=== PATIENT | female | born 1950 | race Asian ===

== ENCOUNTER 2018-03-01 08:19 | Inpatient (IN) | payer SELFPAY ==
[2018-03-01] MEDS ORDERED: DOCUSATE SODIUM 100 MG CAP PO (09:00)
[2018-03-01] MEDS ORDERED: PANTOPRAZOLE 40MG TAB (PROTONIX) PO (09:00)
[2018-03-01] MEDS: MOM 30ML SUSPENSION UDC PO (09:00)
[2018-03-01] MEDS: SENOKOT S TAB PO ×2 (09:00→20:36)
[2018-03-01] MEDS: PANTOPRAZOLE 40MG INJ (PROTONIX) (C9113) IV (09:00)
[2018-03-01 09:17] LABS: BASO % 0.3 % (0.0-1.0); EOS % 0.4 % (0.0-3.0); HEMATOCRIT 38.3 % (36.0-47.0); HEMOGLOBIN 12.9 g/dl (12.0-15.5); IMMATURE GRANULOCYTE % 0.7 % (0-3.0); LYMPH # 1.2 10^3/uL (1.5-4.5); MEAN CORPUSCULAR HEMOGLOBIN 30.6 pg (27.0-33.0); MEAN CORPUSCULAR HGB CONC 33.7 g/dl (32.0-36.5); MONO # 0.6 10^3/uL (0.0-0.8); MONO % 5.8 % (0.0-5.0); NEUTROPHILS % 80.8 % (36.0-66.0); PLATELET COUNT, AUTOMATED 205 10^3/uL (150-450); RED BLOOD COUNT 4.21 10^6/uL (4.00-5.40); RED CELL DISTRIBUTION WIDTH 12.5 % (11.5-14.5); WHITE BLOOD COUNT 9.9 10^3/uL (4.0-10.0)
[2018-03-01 09:51] LABS: ALBUMIN 3.5 GM/DL (3.2-5.2); ALBUMIN/GLOBULIN RATIO 0.88 (1.00-1.93); ALKALINE PHOSPHATASE 129 U/L (45-117); ALT/SGPT 193 U/L (12-78); ANION GAP 16 MEQ/L (8-16); AST/SGOT 75 U/L (7-37); BILIRUBIN,DIRECT 0.5 MG/DL (0.0-0.2); BILIRUBIN,TOTAL 1.3 MG/DL (0.2-1.0); BLOOD UREA NITROGEN 21 MG/DL (7-18); CALCIUM LEVEL 9.1 MG/DL (8.8-10.2); CARBON DIOXIDE LEVEL 16 MEQ/L (21-32); CHLORIDE LEVEL 99 MEQ/L (98-107); CPK CREATINE PHOSPHOKINASE 68 U/L (26-192); CREATININE FOR GFR 0.99 MG/DL (0.55-1.30); FREE T4 1.53 NG/DL (0.76-1.46); GLOMERULAR FILTRATION RATE 59.6 (>45); GLUCOSE, FASTING 548 MG/DL (70-100); LIPASE 107 U/L (73-393); MB/CK RELATIVE INDEX 1.91 (< OR =4); NT-PRO BNP 339 PG/ML (<125); POTASSIUM SERUM 4.6 MEQ/L (3.5-5.1); SODIUM LEVEL 131 MEQ/L (136-145); TOTAL PROTEIN 7.5 GM/DL (6.4-8.2); TROPONIN I < 0.02 NG/ML (< 0.10)
[2018-03-01] MEDS ORDERED: ISOVUE-370 76% 100ML VIAL (Q9967) As Ordered (09:58)
[2018-03-01] MEDS: HumuLIN R (REGULAR) INSULIN (NovoLIN R) **100U/ML** PER UNIT IV (10:05)
[2018-03-01] MEDS: MORPHINE 2 MG/ML 1ML SYRINGE (J2270) IV ×2 (10:15→10:54)
[2018-03-01] MEDS: ONDANSETRON 4MG/2ML VIAL (J2405) IV ×2 (10:15→11:30)
[2018-03-01 10:32] LABS: INR 1.28; PARTIAL THROMBOPLASTIN TIME 27.6 SECONDS (25.4-37.6); PROTHROMBIN TIME 16.2 SECONDS (12.1-14.4)
[2018-03-01] MEDS ORDERED: FLUMAZENIL 0.5 MG/5 ML VIAL As Ordered ×2 (11:47→15:40)
[2018-03-01] MEDS ORDERED: LIDOCAINE 1% MDV 20ML VIAL As Ordered ×2 (11:48→12:18)
[2018-03-01] MEDS ORDERED: MIDAZOLAM INJ 2 MG/2 ML VIAL (J2250) As Ordered ×5 (11:48→13:07)
[2018-03-01] MEDS ORDERED: KCL 20MEQ IN D5/NS 1000ML 1,000 ML IV (11:49)
[2018-03-01] MEDS ORDERED: ACETAMINOPHEN TAB 650MG DOSE (2X325MG) PO (12:00)
[2018-03-01] MEDS ORDERED: PERCOCET 5MG/325MG TAB PO ×3 (12:00→15:00)
[2018-03-01] MEDS ORDERED: BISACODYL 10 MG SUPP PR (12:00)
[2018-03-01] MEDS ORDERED: ONDANSETRON 4MG/2ML VIAL (J2405) IV ×3 (12:00→15:00)
[2018-03-01] MEDS: HumaLOG INSULIN (NovoLOG) PER UNIT SC ×4 (12:00→20:36)
[2018-03-01] MEDS ORDERED: NORCO, ANEXSIA 5/325MG TABLET (HYDROcodone/ACETAMINOPHEN) PO (12:00)
[2018-03-01] MEDS ORDERED: LEVALBUTEROL 1.25 MG/0.5 ML CONCENTRATE NEB NEB ×2 (12:00→14:00)
[2018-03-01] MEDS: NS 1,000 ML IV ×2 (12:20→17:24)
[2018-03-01 12:27] LABS: ABG HCO3 15.8 MEQ/L (22.0-26.0); ABG PARTIAL PRESSURE CO2 28.3 mmHg (35.0-45.0); ABG PARTIAL PRESSURE O2 89.4 mmHg (75.0-100.0); ABG SITE RT RADIAL; ABG TOTAL CO2 16.6 MEQ/L (23.0-31.0); ABG pH (ARTERIAL) 7.364 UNITS (7.350-7.450)
[2018-03-01] MEDS ORDERED: NOREPINEPHRINE 4 MG/4 ML AMP As Ordered (12:28)
[2018-03-01] MEDS ORDERED: MORPHINE 4 MG/ML 1ML VIAL/SYRINGE (J2270) IV (12:30)
[2018-03-01] MEDS ORDERED: NOREPINEPHRINE BITARTRATE 8 MG in D5W 492 ML IV (12:30)
[2018-03-01] MEDS: MIDAZOLAM INJ 2 MG/2 ML VIAL (J2250) IV (13:00)
[2018-03-01] MEDS ORDERED: PROPOFOL 200 MG/20 ML VIAL As Ordered (13:01)
[2018-03-01] MEDS ORDERED: KETAMINE HCL 200 MG/20 ML VIAL As Ordered (13:01)
[2018-03-01] MEDS ORDERED: SUCCINYLCHOLINE 100 MG/5 ML SYRINGE (J0330) As Ordered (13:03)
[2018-03-01] MEDS ORDERED: SUCCINYLCHOLINE INJ 200 MG/10 ML VIAL (J0330) As Ordered (13:04)
[2018-03-01] MEDS ORDERED: ROCURONIUM BROMIDE 50 MG/5 ML VIAL As Ordered ×2 (13:07→13:42)
[2018-03-01] MEDS ORDERED: fentaNYL 100 MCG/2 ML INJECTION (J3010) As Ordered ×2 (13:11→15:23)
[2018-03-01] MEDS ORDERED: PHENYLephrine HCL 500 MCG/5 ML (100MCG/ML) SYRINGE (J2370) As Ordered (13:21)
[2018-03-01] MEDS ORDERED: CALCIUM CHLORIDE 10% 1 GM/10 ML SYR As Ordered (13:21)
[2018-03-01] MEDS ORDERED: ceFAZolin 2 GM/D5W 50 ML IV BAG (J0690 PER 500MG) As Ordered (13:21)
[2018-03-01 13:41] LABS: BEDSIDE GLUCOSE 405 MG/DL (80-115)
[2018-03-01] MEDS ORDERED: DEXTROSE 50% 50 ML SYRINGE IV (13:45)
[2018-03-01] MEDS ORDERED: HEPARIN SOD (PORCINE) 5000 UNITS/ML VIAL IV (13:45)
[2018-03-01] MEDS ORDERED: LR 1,000 ML IV (13:45)
[2018-03-01] MEDS ORDERED: GLUCOSE 4 GM CHEW TABLET PO (13:45)
[2018-03-01] MEDS ORDERED: GLUCAGON FOR INJ 1 MG VIAL (J1610) SC (13:45)
[2018-03-01] MEDS ORDERED: HumuLIN R (REGULAR) INSULIN (NovoLIN R) **100U/ML** PER UNIT As Ordered (13:58)
[2018-03-01] MEDS ORDERED: MIDAZOLAM HCL 100 MG in D5W 80 ML IV (14:00)
[2018-03-01] MEDS: BUPIVACAINE LIPOSOME/PF 1.3% 20 ML VIAL (13.3MG/ML)(EXPAREL) As Ordered (14:11)
[2018-03-01] MEDS: BUPIVACAINE HCL 0.5% 30 ML VIAL As Ordered (14:11)
[2018-03-01] MEDS ORDERED: SUGAMMADEX SODIUM 500 MG/5 ML VIAL (BRIDION) As Ordered (14:12)
[2018-03-01] MEDS ORDERED: PROPOFOL 1,000 MG/100 ML VIAL As Ordered (14:41)
[2018-03-01 14:49] LABS: ABG BASE EXCESS -5.8 (-2.0-2.0); ABG DEVICE MECHAN. VENT; ABG HCO3 20.5 MEQ/L (22.0-26.0); ABG O2 SATURATION 94.1 % (95.0-99.0); ABG PARTIAL PRESSURE CO2 43.3 mmHg (35.0-45.0); ABG PARTIAL PRESSURE O2 83.9 mmHg (75.0-100.0); ABG STANDARD HCO3 19.6 MEQ/L (22.0-26.0); ABG TOTAL CO2 21.8 MEQ/L (23.0-31.0); ABG pH (ARTERIAL) 7.293 UNITS (7.350-7.450)
[2018-03-01] MEDS: PROPOFOL 1,000 MG in APPROPRIATE DILUENT 1 EA IV (14:50)
[2018-03-01] MEDS: LR 1,000 ML IV (15:00)
[2018-03-01] MEDS ORDERED: HYDROMORPHONE HCL 0.5 MG/ 0.5 ML SYRINGE (J1170 PER 1) IV (15:00)
[2018-03-01] MEDS ORDERED: PROPOFOL 1,000 MG/100 ML VIAL IV (15:00)
[2018-03-01] MEDS: SODIUM BICARBONATE 8.4% INJ 50 ML SYRINGE IV (15:05)
[2018-03-01 15:21] LABS: HEMOGLOBIN 12.8 g/dl (12.0-15.5); MEAN CORPUSCULAR HEMOGLOBIN 31.1 pg (27.0-33.0); MEAN CORPUSCULAR HGB CONC 33.7 g/dl (32.0-36.5); MEAN CORPUSCULAR VOLUME 92.2 fl (80.0-96.0); PLATELET COUNT, AUTOMATED 148 10^3/uL (150-450); RED BLOOD COUNT 4.12 10^6/uL (4.00-5.40); RED CELL DISTRIBUTION WIDTH 12.5 % (11.5-14.5); WHITE BLOOD COUNT 9.7 10^3/uL (4.0-10.0)
[2018-03-01 15:26] LABS: ABG BASE EXCESS -1.1 (-2.0-2.0); ABG DEVICE MECHAN. VENT; ABG HCO3 24.2 MEQ/L (22.0-26.0); ABG O2 SATURATION 94.6 % (95.0-99.0); ABG PARTIAL PRESSURE CO2 42.8 mmHg (35.0-45.0); ABG PARTIAL PRESSURE O2 81.6 mmHg (75.0-100.0); ABG STANDARD HCO3 23.5 MEQ/L (22.0-26.0); ABG TOTAL CO2 25.6 MEQ/L (23.0-31.0); ABG pH (ARTERIAL) 7.371 UNITS (7.350-7.450)
[2018-03-01] MEDS: fentaNYL 100 MCG/2 ML INJECTION (J3010) IV ×2 (15:27→15:35)
[2018-03-01 15:31] LABS: BEDSIDE GLUCOSE 308 MG/DL (80-115)
[2018-03-01 15:39] LABS: PARTIAL THROMBOPLASTIN TIME 27.3 SECONDS (25.4-37.6)
[2018-03-01 15:56] LABS: ANION GAP 14 MEQ/L (8-16); BLOOD UREA NITROGEN 19 MG/DL (7-18); CALCIUM LEVEL 9.5 MG/DL (8.8-10.2); CARBON DIOXIDE LEVEL 21 MEQ/L (21-32); CHLORIDE LEVEL 104 MEQ/L (98-107); CREATININE FOR GFR 0.95 MG/DL (0.55-1.30); GLOMERULAR FILTRATION RATE > 60.0 (>45); GLUCOSE, FASTING 322 MG/DL (70-100); SODIUM LEVEL 139 MEQ/L (136-145)
[2018-03-01 16:31] LABS: POTASSIUM SERUM 5.2 MEQ/L (3.5-5.1)
[2018-03-01 16:40] LABS: HEPATITIS C VIRUS ABY INDEX 0.1 INDEX (<0.8)
[2018-03-01 16:40] LABS: HEPATITIS A ANTIBODY IGM NEGATIVE (NEGATIVE); HEPATITIS B CORE ANTIBODY IGM NEGATIVE (NEGATIVE); HEPATITIS B SURFACE ANTIGEN NEGATIVE (NEGATIVE)
[2018-03-01 17:33] LABS: BEDSIDE GLUCOSE 242 MG/DL (80-115)
[2018-03-01] MEDS ORDERED: SODIUM BICARBONATE 8.4% INJ 50MEQ 50 ML VIAL (17:34)
[2018-03-01] MEDS: HEPARIN DRIP 25,000 UNITS in APPROPRIATE DILUENT 1 EA IV (18:33)
[2018-03-01 19:03] LABS: CPK CREATINE PHOSPHOKINASE 121 U/L (26-192); MB/CK RELATIVE INDEX 1.98 (< OR =4); TROPONIN I 0.32 NG/ML (< 0.10)
[2018-03-01] MEDS: IPRATROPIUM 0.5MG/ALBUTEROL 2.5MG INH SOL UD 3ML (DUONEB)(J7620) NEB (20:00)
[2018-03-01 20:01] LABS: BEDSIDE GLUCOSE 272 MG/DL (80-115)
[2018-03-01] MEDS: LEVEMIR (INSULIN DETEMIR) 1 UNITS/0.01ML SC (20:36)
[2018-03-01] MEDS ORDERED: CHLORHEXIDINE ORAL RINSE 0.12%/15ML 120ML BOTTLE MT (21:00)
[2018-03-01] MEDS ORDERED: HEPARIN SOD (PORCINE) 5000 UNITS/ML VIAL SC (21:00)
[2018-03-01 22:10] LABS: BEDSIDE GLUCOSE 187 MG/DL (80-115)
[2018-03-01 23:03] LABS: PH BODY FLUID 7.497 UNITS (NOT ESTABLISHED); SOURCE, BODY FLUID pH PLEURAL
[2018-03-01 23:07] LABS: SOURCE, BODY FLUID pH PLEURAL
[2018-03-01 23:12] LABS: PH BODY FLUID 6.504 UNITS (NOT ESTABLISHED)
[2018-03-01 23:18] LABS: BF MONONUCLEAR CELL % 85.6 % (0-0); BF POLYMORPHONUCLEAR CELL % 14.4 % (0-0); RBC BODY FLUID 31 10^3/uL (<2); WBC BODY FLUID 530 /uL (0-10)
[2018-03-01 23:19] LABS: APPEARANCE, BODY FLUID TURBID (CLEAR); BF DIFF IF INDICATED? YES (NO); PLEURAL FL COLOR RED (COLORLESS); SOURCE, BODY FLUID PLEURAL
[2018-03-01 23:20] LABS: APPEARANCE, BODY FLUID TURBID (CLEAR); BF DIFF IF INDICATED? YES (NO); BF MONONUCLEAR CELL % 66.2 % (0-0); BF POLYMORPHONUCLEAR CELL % 33.8 % (0-0); PLEURAL FL COLOR RED (COLORLESS); RBC BODY FLUID 2041 10^3/uL (<2); SOURCE, BODY FLUID PLEURAL; WBC BODY FLUID 7580 /uL (0-10)
[2018-03-01 23:23] LABS: AMYLASE, BODY FLUID 8 U/L (NOT ESTABLISHED); LDH, BODY FLUID 381 U/L (NOT ESTABLISHED); SOURCE, BODY FLUID AMYLASE PLEURAL; SOURCE, BODY FLUID LDH PLEURAL; SOURCE, BODY FLUID TOT PROTEIN PLEURAL; TOTAL PROTEIN, BODY FLUID 4.5 G/DL (NOT ESTABLISHED)
[2018-03-02 00:26] LABS: AMYLASE, BODY FLUID 244 U/L (NOT ESTABLISHED); SOURCE, BODY FLUID AMYLASE PLEURAL; SOURCE, BODY FLUID TOT PROTEIN PLEURAL; TOTAL PROTEIN, BODY FLUID 8.8 G/DL (NOT ESTABLISHED)
[2018-03-02 00:28] LABS: LDH, BODY FLUID 6852 U/L (NOT ESTABLISHED); SOURCE, BODY FLUID LDH PLEURAL
[2018-03-02 00:31] LABS: BEDSIDE GLUCOSE 138 MG/DL (80-115)
[2018-03-02 00:40] LABS: SOURCE, BODY FLUID GLUCOSE PLEURAL
[2018-03-02 00:42] LABS: SOURCE, BODY FLUID GLUCOSE PLEURAL
[2018-03-02 00:54] LABS: PARTIAL THROMBOPLASTIN TIME 60.6 SECONDS (25.4-37.6)
[2018-03-02] MEDS ORDERED: BISACODYL 10 MG SUPP PR (01:15)
[2018-03-02] MEDS ORDERED: LEVALBUTEROL 1.25 MG/0.5 ML CONCENTRATE NEB NEB (01:15)
[2018-03-02] MEDS ORDERED: PERCOCET 5MG/325MG TAB PO (01:15)
[2018-03-02] MEDS ORDERED: NORCO, ANEXSIA 5/325MG TABLET (HYDROcodone/ACETAMINOPHEN) PO (01:15)
[2018-03-02] MEDS: KETOROLAC 30 MG/ML VIAL (J1885) IV ×4 (01:33→20:48)
[2018-03-02] MEDS: ceFAZolin SOD 1 GM in D5W MINI-BAG PLUS 50 ML IV ×3 (01:34→17:57)
[2018-03-02] MEDS: FUROSEMIDE 20 MG/2 ML VIAL (J1940) IV (01:34)
[2018-03-02 02:44] LABS: BEDSIDE GLUCOSE 146 MG/DL (80-115)
[2018-03-02] MEDS: NS 500 ML IV (03:30)
[2018-03-02 03:38] LABS: CPK CREATINE PHOSPHOKINASE 171 U/L (26-192); MB/CK RELATIVE INDEX 1.23 (< OR =4); TROPONIN I 0.45 NG/ML (< 0.10)
[2018-03-02] MEDS: SODIUM CHLORIDE 0.9% 1000ML IV (04:30)
[2018-03-02 05:39] LABS: ABG BASE EXCESS 0.2 (-2.0-2.0); ABG HCO3 23.7 MEQ/L (22.0-26.0); ABG O2 SATURATION 95.1 % (95.0-99.0); ABG PARTIAL PRESSURE CO2 34.2 mmHg (35.0-45.0); ABG PARTIAL PRESSURE O2 75.4 mmHg (75.0-100.0); ABG STANDARD HCO3 24.7 MEQ/L (22.0-26.0); ABG TOTAL CO2 24.7 MEQ/L (23.0-31.0); ABG pH (ARTERIAL) 7.458 UNITS (7.350-7.450)
[2018-03-02] MEDS: LEVALBUTEROL 1.25 MG/0.5 ML CONCENTRATE NEB NEB ×4 (05:41→19:59)
[2018-03-02 06:21] LABS: BEDSIDE GLUCOSE 109 MG/DL (80-115)
[2018-03-02 06:36] LABS: BASO % 0.3 % (0.0-1.0); EOS # 0.2 10^3/uL (0.0-0.50); EOS % 2.5 % (0.0-3.0); HEMATOCRIT 34.9 % (36.0-47.0); HEMOGLOBIN 11.6 g/dl (12.0-15.5); IMMATURE GRANULOCYTE % 0.6 % (0-3.0); LYMPH # 1.8 10^3/uL (1.5-4.5); LYMPH % 20.7 % (24.0-44.0); MEAN CORPUSCULAR HEMOGLOBIN 30.6 pg (27.0-33.0); MEAN CORPUSCULAR HGB CONC 33.2 g/dl (32.0-36.5); MEAN CORPUSCULAR VOLUME 92.1 fl (80.0-96.0); MONO # 0.5 10^3/uL (0.0-0.8); MONO % 5.4 % (0.0-5.0); NEUTROPHILS # 6.3 10^3/uL (1.8-7.7); NEUTROPHILS % 70.5 % (36.0-66.0); PLATELET COUNT, AUTOMATED 139 10^3/uL (150-450); RED BLOOD COUNT 3.79 10^6/uL (4.00-5.40); RED CELL DISTRIBUTION WIDTH 12.6 % (11.5-14.5); WHITE BLOOD COUNT 8.9 10^3/uL (4.0-10.0)
[2018-03-02 06:46] LABS: INR 1.29; PROTHROMBIN TIME 16.3 SECONDS (12.1-14.4)
[2018-03-02 06:48] LABS: PARTIAL THROMBOPLASTIN TIME 99.4 SECONDS (25.4-37.6)
[2018-03-02 06:59] LABS: ALBUMIN 2.4 GM/DL (3.2-5.2); ALKALINE PHOSPHATASE 85 U/L (45-117); ALT/SGPT 98 U/L (12-78); ANION GAP 6 MEQ/L (8-16); AST/SGOT 43 U/L (7-37); BLOOD UREA NITROGEN 14 MG/DL (7-18); CALCIUM LEVEL 7.1 MG/DL (8.8-10.2); CARBON DIOXIDE LEVEL 27 MEQ/L (21-32); CHLORIDE LEVEL 109 MEQ/L (98-107); CREATININE FOR GFR 0.61 MG/DL (0.55-1.30); GLOMERULAR FILTRATION RATE > 60.0 (>45); GLUCOSE, FASTING 108 MG/DL (70-100); MAGNESIUM LEVEL 1.7 MG/DL (1.8-2.4); POTASSIUM SERUM 3.4 MEQ/L (3.5-5.1); SODIUM LEVEL 142 MEQ/L (136-145); TOTAL PROTEIN 5.4 GM/DL (6.4-8.2)
[2018-03-02 07:00] LABS: ESTIMATED AVERAGE GLUCOSE 229 MG/DL (60-110); HEMOGLOBIN A1c 9.6 %
[2018-03-02] MEDS: HumaLOG INSULIN (NovoLOG) PER UNIT SC ×4 (07:30→20:49)
[2018-03-02] MEDS: MOM 30ML SUSPENSION UDC PO (09:00)
[2018-03-02] MEDS: LEVEMIR (INSULIN DETEMIR) 1 UNITS/0.01ML SC ×2 (09:00→20:47)
[2018-03-02] MEDS: SENOKOT S TAB PO ×2 (09:00→20:50)
[2018-03-02] MEDS: DOCUSATE SODIUM 100 MG CAP PO ×2 (09:00→10:16)
[2018-03-02 09:32] LABS: BEDSIDE GLUCOSE 137 MG/DL (80-115)
[2018-03-02] MEDS: PANTOPRAZOLE 40MG TAB (PROTONIX) PO (10:14)
[2018-03-02] MEDS: MAG SULF 1GM/100ML (MAG RUN) 1 GM in APPROPRIATE DILUENT 1 EA IV (10:14)
[2018-03-02] MEDS: POTASSIUM CHLORIDE 10 MEQ SR TABLET PO (10:19)
[2018-03-02 10:53] LABS: CPK CREATINE PHOSPHOKINASE 181 U/L (26-192); MB/CK RELATIVE INDEX 0.66 (< OR =4); TROPONIN I 0.15 NG/ML (< 0.10)
[2018-03-02] MEDS ORDERED: ISOVUE-370 76% 100ML VIAL (Q9967) As Ordered (11:36)
[2018-03-02 12:37] LABS: PARTIAL THROMBOPLASTIN TIME 90.6 SECONDS (25.4-37.6)
[2018-03-02 12:38] LABS: BEDSIDE GLUCOSE 252 MG/DL (80-115)
[2018-03-02 16:49] LABS: BEDSIDE GLUCOSE 237 MG/DL (80-115)
[2018-03-02] MEDS: HEPARIN DRIP 25,000 UNITS in APPROPRIATE DILUENT 1 EA IV (19:20)
[2018-03-02 20:01] LABS: BEDSIDE GLUCOSE 311 MG/DL (80-115)
[2018-03-02] MEDS: PERCOCET 5MG/325MG TAB PO (22:47)
[2018-03-03] MEDS: zolPIDEM TARTRATE 5 MG TAB PO ×2 (00:21→23:16)
[2018-03-03] MEDS: LEVALBUTEROL 1.25 MG/0.5 ML CONCENTRATE NEB NEB ×4 (02:00→20:15)
[2018-03-03] MEDS: ceFAZolin SOD 1 GM in D5W MINI-BAG PLUS 50 ML IV ×3 (02:23→18:08)
[2018-03-03] MEDS: KETOROLAC 30 MG/ML VIAL (J1885) IV ×4 (02:23→19:53)
[2018-03-03 05:05] LABS: BASO % 0.5 % (0.0-1.0); EOS # 0.2 10^3/uL (0.0-0.50); EOS % 3.7 % (0.0-3.0); HEMATOCRIT 31.1 % (36.0-47.0); HEMOGLOBIN 10.3 g/dl (12.0-15.5); IMMATURE GRANULOCYTE % 0.7 % (0-3.0); LYMPH # 1.2 10^3/uL (1.5-4.5); MEAN CORPUSCULAR HEMOGLOBIN 30.5 pg (27.0-33.0); MEAN CORPUSCULAR HGB CONC 33.1 g/dl (32.0-36.5); MONO # 0.3 10^3/uL (0.0-0.8); MONO % 5.9 % (0.0-5.0); NEUTROPHILS % 69.2 % (36.0-66.0); PLATELET COUNT, AUTOMATED 136 10^3/uL (150-450); RED BLOOD COUNT 3.38 10^6/uL (4.00-5.40); RED CELL DISTRIBUTION WIDTH 12.6 % (11.5-14.5); WHITE BLOOD COUNT 5.8 10^3/uL (4.0-10.0)
[2018-03-03 05:28] LABS: ALBUMIN 2.2 GM/DL (3.2-5.2); ALBUMIN/GLOBULIN RATIO 0.76 (1.00-1.93); ALKALINE PHOSPHATASE 78 U/L (45-117); ALT/SGPT 62 U/L (12-78); ANION GAP 9 MEQ/L (8-16); AST/SGOT 26 U/L (7-37); BILIRUBIN,TOTAL 0.7 MG/DL (0.2-1.0); BLOOD UREA NITROGEN 12 MG/DL (7-18); CALCIUM LEVEL 7.4 MG/DL (8.8-10.2); CARBON DIOXIDE LEVEL 22 MEQ/L (21-32); CHLORIDE LEVEL 110 MEQ/L (98-107); CREATININE FOR GFR 0.46 MG/DL (0.55-1.30); GLOMERULAR FILTRATION RATE > 60.0 (>45); GLUCOSE, FASTING 176 MG/DL (70-100); INR 1.15; MAGNESIUM LEVEL 2.1 MG/DL (1.8-2.4); POTASSIUM SERUM 3.5 MEQ/L (3.5-5.1); PROTHROMBIN TIME 14.9 SECONDS (12.1-14.4); SODIUM LEVEL 141 MEQ/L (136-145); TOTAL PROTEIN 5.1 GM/DL (6.4-8.2)
[2018-03-03 05:41] LABS: PARTIAL THROMBOPLASTIN TIME 132.1 SECONDS (25.4-37.6)
[2018-03-03] MEDS: SENOKOT S TAB PO ×2 (08:34→21:00)
[2018-03-03] MEDS: PANTOPRAZOLE 40MG TAB (PROTONIX) PO (08:34)
[2018-03-03] MEDS: DOCUSATE SODIUM 100 MG CAP PO ×2 (08:34→21:00)
[2018-03-03] MEDS: PERCOCET 5MG/325MG TAB PO ×2 (08:35→23:22)
[2018-03-03] MEDS: HumaLOG INSULIN (NovoLOG) PER UNIT SC ×4 (08:38→21:09)
[2018-03-03] MEDS: MOM 30ML SUSPENSION UDC PO (08:44)
[2018-03-03] MEDS: LEVEMIR (INSULIN DETEMIR) 1 UNITS/0.01ML SC ×2 (08:44→21:09)
[2018-03-03] MEDS: DEXTROMETHORPHAN 60MG/10ML SUSP 90ML BTL(DELSYM) PO (11:14)
[2018-03-03] MEDS ORDERED: guaiFENesin DM LIQ 10ML UD PO (12:00)
[2018-03-03 12:46] LABS: PARTIAL THROMBOPLASTIN TIME 63.4 SECONDS (25.4-37.6)
[2018-03-03 13:28] LABS: BEDSIDE GLUCOSE 248 MG/DL (80-115)
[2018-03-03] MEDS: POTASSIUM CHLORIDE 10 MEQ SR TABLET PO (13:33)
[2018-03-03] MEDS: FUROSEMIDE 40 MG/4 ML VIAL (J1940) IV (13:34)
[2018-03-03 17:46] LABS: BEDSIDE GLUCOSE 329 MG/DL (80-115)
[2018-03-03 20:47] LABS: BEDSIDE GLUCOSE 261 MG/DL (80-115)
[2018-03-03 20:55] LABS: PARTIAL THROMBOPLASTIN TIME 62.8 SECONDS (25.4-37.6)
[2018-03-03] MEDS: HEPARIN DRIP 25,000 UNITS in APPROPRIATE DILUENT 1 EA IV (21:11)
[2018-03-04] MEDS: LEVALBUTEROL 1.25 MG/0.5 ML CONCENTRATE NEB NEB ×4 (02:00→20:03)
[2018-03-04] MEDS: KETOROLAC 30 MG/ML VIAL (J1885) IV ×4 (02:27→20:21)
[2018-03-04 03:00] LABS: BASO % 0.3 % (0.0-1.0); EOS # 0.3 10^3/uL (0.0-0.50); EOS % 3.9 % (0.0-3.0); HEMATOCRIT 32.4 % (36.0-47.0); HEMOGLOBIN 10.9 g/dl (12.0-15.5); IMMATURE GRANULOCYTE % 0.4 % (0-3.0); LYMPH # 1.4 10^3/uL (1.5-4.5); LYMPH % 20.1 % (24.0-44.0); MEAN CORPUSCULAR HEMOGLOBIN 30.9 pg (27.0-33.0); MEAN CORPUSCULAR HGB CONC 33.6 g/dl (32.0-36.5); MEAN CORPUSCULAR VOLUME 91.8 fl (80.0-96.0); MONO # 0.3 10^3/uL (0.0-0.8); MONO % 4.5 % (0.0-5.0); NEUTROPHILS # 4.7 10^3/uL (1.8-7.7); NEUTROPHILS % 70.8 % (36.0-66.0); PLATELET COUNT, AUTOMATED 166 10^3/uL (150-450); RED BLOOD COUNT 3.53 10^6/uL (4.00-5.40); RED CELL DISTRIBUTION WIDTH 12.5 % (11.5-14.5); WHITE BLOOD COUNT 6.7 10^3/uL (4.0-10.0)
[2018-03-04 03:10] LABS: INR 1.05; PROTHROMBIN TIME 13.8 SECONDS (12.1-14.4)
[2018-03-04 03:11] LABS: PARTIAL THROMBOPLASTIN TIME 105.1 SECONDS (25.4-37.6)
[2018-03-04 03:20] LABS: ALBUMIN 2.2 GM/DL (3.2-5.2); ALBUMIN/GLOBULIN RATIO 0.61 (1.00-1.93); ALKALINE PHOSPHATASE 85 U/L (45-117); ALT/SGPT 49 U/L (12-78); ANION GAP 10 MEQ/L (8-16); AST/SGOT 22 U/L (7-37); BILIRUBIN,TOTAL 0.6 MG/DL (0.2-1.0); BLOOD UREA NITROGEN 8 MG/DL (7-18); CALCIUM LEVEL 7.5 MG/DL (8.8-10.2); CARBON DIOXIDE LEVEL 24 MEQ/L (21-32); CHLORIDE LEVEL 108 MEQ/L (98-107); CREATININE FOR GFR 0.37 MG/DL (0.55-1.30); GLOMERULAR FILTRATION RATE > 60.0 (>45); GLUCOSE, FASTING 147 MG/DL (70-100); MAGNESIUM LEVEL 2.1 MG/DL (1.8-2.4); POTASSIUM SERUM 3.5 MEQ/L (3.5-5.1); SODIUM LEVEL 142 MEQ/L (136-145); TOTAL PROTEIN 5.8 GM/DL (6.4-8.2)
[2018-03-04] MEDS: DOCUSATE SODIUM 100 MG CAP PO ×2 (07:36→19:29)
[2018-03-04] MEDS: MOM 30ML SUSPENSION UDC PO (07:37)
[2018-03-04] MEDS: SENOKOT S TAB PO ×2 (07:37→19:30)
[2018-03-04] MEDS: POTASSIUM CHLORIDE 10 MEQ SR TABLET PO (08:00)
[2018-03-04] MEDS: PANTOPRAZOLE 40MG TAB (PROTONIX) PO (08:01)
[2018-03-04] MEDS: LEVEMIR (INSULIN DETEMIR) 1 UNITS/0.01ML SC ×2 (08:01→20:22)
[2018-03-04] MEDS: HumaLOG INSULIN (NovoLOG) PER UNIT SC ×4 (08:03→20:22)
[2018-03-04 10:02] LABS: PARTIAL THROMBOPLASTIN TIME 83.6 SECONDS (25.4-37.6)
[2018-03-04 12:12] LABS: BEDSIDE GLUCOSE 342 MG/DL (80-115)
[2018-03-04] MEDS: FUROSEMIDE 40 MG/4 ML VIAL (J1940) IV (14:39)
[2018-03-04 17:32] LABS: BEDSIDE GLUCOSE 369 MG/DL (80-115)
[2018-03-04] MEDS ORDERED: PROHANCE 279.3MG/ML 15ML VIAL (A9576) As Ordered (19:30)
[2018-03-04 20:18] LABS: BEDSIDE GLUCOSE 290 MG/DL (80-115)
[2018-03-04] MEDS: zolPIDEM TARTRATE 5 MG TAB PO (20:21)
[2018-03-04] MEDS: guaiFENesin SYRUP 200 MG/10 ML UDC PO (22:21)
[2018-03-05] MEDS: LEVALBUTEROL 1.25 MG/0.5 ML CONCENTRATE NEB NEB ×4 (02:00→20:16)
[2018-03-05] MEDS: KETOROLAC 30 MG/ML VIAL (J1885) IV ×4 (02:12→20:40)
[2018-03-05] MEDS: guaiFENesin SYRUP 200 MG/10 ML UDC PO ×2 (02:12→20:41)
[2018-03-05 04:55] LABS: BASO % 0.4 % (0.0-1.0); EOS # 0.2 10^3/uL (0.0-0.50); EOS % 3.6 % (0.0-3.0); HEMATOCRIT 33.4 % (36.0-47.0); HEMOGLOBIN 11.1 g/dl (12.0-15.5); IMMATURE GRANULOCYTE % 0.4 % (0-3.0); LYMPH # 1.3 10^3/uL (1.5-4.5); MEAN CORPUSCULAR HEMOGLOBIN 30.4 pg (27.0-33.0); MEAN CORPUSCULAR HGB CONC 33.2 g/dl (32.0-36.5); MEAN CORPUSCULAR VOLUME 91.5 fl (80.0-96.0); MONO # 0.3 10^3/uL (0.0-0.8); MONO % 5.7 % (0.0-5.0); NEUTROPHILS # 3.5 10^3/uL (1.8-7.7); NEUTROPHILS % 65.9 % (36.0-66.0); PLATELET COUNT, AUTOMATED 197 10^3/uL (150-450); RED BLOOD COUNT 3.65 10^6/uL (4.00-5.40); RED CELL DISTRIBUTION WIDTH 12.5 % (11.5-14.5); WHITE BLOOD COUNT 5.3 10^3/uL (4.0-10.0)
[2018-03-05 05:20] LABS: INR 1.01; PROTHROMBIN TIME 13.4 SECONDS (12.1-14.4)
[2018-03-05 05:25] LABS: ALBUMIN 2.2 GM/DL (3.2-5.2); ALBUMIN/GLOBULIN RATIO 0.61 (1.00-1.93); ALKALINE PHOSPHATASE 126 U/L (45-117); ALT/SGPT 48 U/L (12-78); ANION GAP 9 MEQ/L (8-16); AST/SGOT 33 U/L (7-37); BILIRUBIN,TOTAL 0.8 MG/DL (0.2-1.0); BLOOD UREA NITROGEN 5 MG/DL (7-18); CALCIUM LEVEL 7.7 MG/DL (8.8-10.2); CARBON DIOXIDE LEVEL 25 MEQ/L (21-32); CHLORIDE LEVEL 110 MEQ/L (98-107); CREATININE FOR GFR 0.41 MG/DL (0.55-1.30); GLOMERULAR FILTRATION RATE > 60.0 (>45); GLUCOSE, FASTING 127 MG/DL (70-100); MAGNESIUM LEVEL 2.2 MG/DL (1.8-2.4); POTASSIUM SERUM 3.4 MEQ/L (3.5-5.1); SODIUM LEVEL 144 MEQ/L (136-145); TOTAL PROTEIN 5.8 GM/DL (6.4-8.2)
[2018-03-05 06:16] LABS: PARTIAL THROMBOPLASTIN TIME 128.3 SECONDS (25.4-37.6)
[2018-03-05] MEDS: HumaLOG INSULIN (NovoLOG) PER UNIT SC ×4 (07:30→20:45)
[2018-03-05 08:32] LABS: BEDSIDE GLUCOSE 155 MG/DL (80-115)
[2018-03-05] MEDS: POTASSIUM CHLORIDE 10 MEQ SR TABLET PO ×2 (08:37→20:42)
[2018-03-05] MEDS: PANTOPRAZOLE 40MG TAB (PROTONIX) PO (08:37)
[2018-03-05] MEDS: SENOKOT S TAB PO ×2 (08:37→20:45)
[2018-03-05] MEDS: FUROSEMIDE 40 MG/4 ML VIAL (J1940) IV (08:38)
[2018-03-05] MEDS: MOM 30ML SUSPENSION UDC PO (08:38)
[2018-03-05] MEDS: LEVEMIR (INSULIN DETEMIR) 1 UNITS/0.01ML SC ×3 (08:39→20:42)
[2018-03-05] MEDS: DOCUSATE SODIUM 100 MG CAP PO ×2 (08:39→20:45)
[2018-03-05 11:47] LABS: BEDSIDE GLUCOSE 365 MG/DL (80-115)
[2018-03-05 13:31] LABS: PARTIAL THROMBOPLASTIN TIME 50.1 SECONDS (25.4-37.6)
[2018-03-05 13:39] LABS: APPEARANCE, URINE CLEAR (CLEAR); BACTERIA, URINE AUTO NEGATIVE (NEGATIVE); BILIRUBIN, URINE AUTO NEGATIVE (NEGATIVE); BLOOD, URINE BLOOD 2+ (NEGATIVE); COLOR, URINE YELLOW (YELLOW); GLUCOSE, URINE (UA) AUTO 3+ mg/dL (NEGATIVE); KETONE, URINE AUTO 1+ mg/dL (NEGATIVE); LEUKOCYTE ESTERASE, URINE AUTO NEGATIVE (NEGATIVE); MUCUS, URINE SMALL (NEGATIVE); NITRITE, URINE AUTO NEGATIVE (NEGATIVE); PROTEIN, URINE AUTO NEGATIVE (NEGATIVE); RBC, URINE AUTO 44 /HPF (0-3); SPECIFIC GRAVITY URINE AUTO 1.008 (1.002-1.035); SQUAMOUS EPITHELIAL CELL UR AU 0 /HPF (0-6); UROBILINOGEN, URINE AUTO 0.2 mg/dL (0.0-2.0); WBC, URINE AUTO 4 /HPF (0-3)
[2018-03-05 16:47] LABS: BEDSIDE GLUCOSE 312 MG/DL (80-115)
[2018-03-05 19:57] LABS: PARTIAL THROMBOPLASTIN TIME 62.6 SECONDS (25.4-37.6)
[2018-03-05 20:31] LABS: BEDSIDE GLUCOSE 263 MG/DL (80-115)
[2018-03-05] MEDS: zolPIDEM TARTRATE 5 MG TAB PO (20:46)
[2018-03-06] MEDS: HEPARIN DRIP 25,000 UNITS in APPROPRIATE DILUENT 1 EA IV (00:34)
[2018-03-06] MEDS: LEVALBUTEROL 1.25 MG/0.5 ML CONCENTRATE NEB NEB ×4 (02:00→20:20)
[2018-03-06] MEDS: KETOROLAC 30 MG/ML VIAL (J1885) IV ×2 (02:55→08:19)
[2018-03-06] MEDS: guaiFENesin SYRUP 200 MG/10 ML UDC PO (03:38)
[2018-03-06 03:43] LABS: BASO % 0.4 % (0.0-1.0); EOS # 0.3 10^3/uL (0.0-0.50); EOS % 5.6 % (0.0-3.0); HEMATOCRIT 34.2 % (36.0-47.0); HEMOGLOBIN 11.3 g/dl (12.0-15.5); IMMATURE GRANULOCYTE % 0.6 % (0-3.0); LYMPH # 1.4 10^3/uL (1.5-4.5); LYMPH % 27.7 % (24.0-44.0); MEAN CORPUSCULAR HEMOGLOBIN 30.5 pg (27.0-33.0); MEAN CORPUSCULAR VOLUME 92.4 fl (80.0-96.0); MONO # 0.3 10^3/uL (0.0-0.8); MONO % 6.4 % (0.0-5.0); NEUTROPHILS % 59.3 % (36.0-66.0); PLATELET COUNT, AUTOMATED 217 10^3/uL (150-450); RED CELL DISTRIBUTION WIDTH 12.5 % (11.5-14.5)
[2018-03-06 04:04] LABS: INR 0.99; PROTHROMBIN TIME 13.2 SECONDS (12.1-14.4)
[2018-03-06 04:06] LABS: PARTIAL THROMBOPLASTIN TIME 94.4 SECONDS (25.4-37.6)
[2018-03-06 04:19] LABS: ALBUMIN 2.3 GM/DL (3.2-5.2); ALBUMIN/GLOBULIN RATIO 0.58 (1.00-1.93); ALKALINE PHOSPHATASE 146 U/L (45-117); ALT/SGPT 60 U/L (12-78); ANION GAP 7 MEQ/L (8-16); AST/SGOT 48 U/L (7-37); BILIRUBIN,TOTAL 0.6 MG/DL (0.2-1.0); BLOOD UREA NITROGEN 6 MG/DL (7-18); CARBON DIOXIDE LEVEL 26 MEQ/L (21-32); CHLORIDE LEVEL 111 MEQ/L (98-107); CREATININE FOR GFR 0.52 MG/DL (0.55-1.30); GLOMERULAR FILTRATION RATE > 60.0 (>45); GLUCOSE, FASTING 114 MG/DL (70-100); MAGNESIUM LEVEL 2.3 MG/DL (1.8-2.4); SODIUM LEVEL 144 MEQ/L (136-145); TOTAL PROTEIN 6.3 GM/DL (6.4-8.2)
[2018-03-06] MEDS: LEVEMIR (INSULIN DETEMIR) 1 UNITS/0.01ML SC ×2 (08:18→21:07)
[2018-03-06] MEDS: HumaLOG INSULIN (NovoLOG) PER UNIT SC ×4 (08:18→21:00)
[2018-03-06] MEDS: PANTOPRAZOLE 40MG TAB (PROTONIX) PO (08:19)
[2018-03-06] MEDS: POTASSIUM CHLORIDE 10 MEQ SR TABLET PO ×2 (08:19→21:07)
[2018-03-06] MEDS: MOM 30ML SUSPENSION UDC PO (08:51)
[2018-03-06] MEDS: DOCUSATE SODIUM 100 MG CAP PO ×2 (08:51→21:00)
[2018-03-06] MEDS: SENOKOT S TAB PO ×2 (08:51→21:00)
[2018-03-06 09:41] LABS: PARTIAL THROMBOPLASTIN TIME 61.6 SECONDS (25.4-37.6)
[2018-03-06 11:50] LABS: BEDSIDE GLUCOSE 306 MG/DL (80-115)
[2018-03-06] MEDS: ENOXAPARIN 80 MG/0.8 ML SYRINGE (J1650) SC ×2 (11:55→23:37)
[2018-03-06 16:47] LABS: BEDSIDE GLUCOSE 321 MG/DL (80-115)
[2018-03-06] MEDS: IBUPROFEN 400 MG TAB PO (18:02)
[2018-03-06 19:57] LABS: BEDSIDE GLUCOSE 201 MG/DL (80-115)
[2018-03-06] MEDS: zolPIDEM TARTRATE 5 MG TAB PO (21:07)
[2018-03-07] MEDS: LEVALBUTEROL 1.25 MG/0.5 ML CONCENTRATE NEB NEB ×4 (02:00→20:00)
[2018-03-07] MEDS: ALPRAZolam 0.25 MG TAB PO ×2 (02:22→13:05)
[2018-03-07] MEDS: IBUPROFEN 400 MG TAB PO ×2 (03:20→16:26)
[2018-03-07 04:46] LABS: BASO % 0.5 % (0.0-1.0); EOS # 0.3 10^3/uL (0.0-0.50); EOS % 4.3 % (0.0-3.0); HEMATOCRIT 35.6 % (36.0-47.0); HEMOGLOBIN 11.8 g/dl (12.0-15.5); IMMATURE GRANULOCYTE % 0.7 % (0-3.0); LYMPH # 1.4 10^3/uL (1.5-4.5); LYMPH % 23.1 % (24.0-44.0); MEAN CORPUSCULAR HEMOGLOBIN 30.6 pg (27.0-33.0); MEAN CORPUSCULAR HGB CONC 33.1 g/dl (32.0-36.5); MEAN CORPUSCULAR VOLUME 92.2 fl (80.0-96.0); MONO # 0.3 10^3/uL (0.0-0.8); MONO % 5.2 % (0.0-5.0); NEUTROPHILS % 66.2 % (36.0-66.0); PLATELET COUNT, AUTOMATED 260 10^3/uL (150-450); RED BLOOD COUNT 3.86 10^6/uL (4.00-5.40); RED CELL DISTRIBUTION WIDTH 12.5 % (11.5-14.5)
[2018-03-07 05:16] LABS: ALBUMIN 2.6 GM/DL (3.2-5.2); ALBUMIN/GLOBULIN RATIO 0.68 (1.00-1.93); ALKALINE PHOSPHATASE 145 U/L (45-117); ALT/SGPT 54 U/L (12-78); ANION GAP 8 MEQ/L (8-16); AST/SGOT 35 U/L (7-37); BILIRUBIN,TOTAL 0.6 MG/DL (0.2-1.0); BLOOD UREA NITROGEN 7 MG/DL (7-18); CALCIUM LEVEL 8.6 MG/DL (8.8-10.2); CARBON DIOXIDE LEVEL 24 MEQ/L (21-32); CHLORIDE LEVEL 110 MEQ/L (98-107); CREATININE FOR GFR 0.56 MG/DL (0.55-1.30); GLOMERULAR FILTRATION RATE > 60.0 (>45); GLUCOSE, FASTING 137 MG/DL (70-100); MAGNESIUM LEVEL 2.4 MG/DL (1.8-2.4); POTASSIUM SERUM 4.4 MEQ/L (3.5-5.1); SODIUM LEVEL 142 MEQ/L (136-145); TOTAL PROTEIN 6.4 GM/DL (6.4-8.2)
[2018-03-07 08:00] LABS: BEDSIDE GLUCOSE 149 MG/DL (80-115)
[2018-03-07] MEDS: SENOKOT S TAB PO ×2 (08:37→20:17)
[2018-03-07] MEDS: MOM 30ML SUSPENSION UDC PO (08:37)
[2018-03-07] MEDS: PANTOPRAZOLE 40MG TAB (PROTONIX) PO (08:37)
[2018-03-07] MEDS: HumaLOG INSULIN (NovoLOG) PER UNIT SC ×4 (08:37→20:17)
[2018-03-07] MEDS: LEVEMIR (INSULIN DETEMIR) 1 UNITS/0.01ML SC ×2 (08:37→20:17)
[2018-03-07] MEDS: ENOXAPARIN 80 MG/0.8 ML SYRINGE (J1650) SC ×2 (10:29→21:57)
[2018-03-07 12:01] LABS: BEDSIDE GLUCOSE 422 MG/DL (80-115)
[2018-03-07 17:10] LABS: BEDSIDE GLUCOSE 181 MG/DL (80-115)
[2018-03-07] MEDS: guaiFENesin SYRUP 200 MG/10 ML UDC PO ×2 (17:15→23:10)
[2018-03-07 20:36] LABS: BEDSIDE GLUCOSE 315 MG/DL (80-115)
[2018-03-07] MEDS: zolPIDEM TARTRATE 5 MG TAB PO (21:57)
[2018-03-08] MEDS: LEVALBUTEROL 1.25 MG/0.5 ML CONCENTRATE NEB NEB ×4 (02:00→20:00)
[2018-03-08 06:15] LABS: BASO % 0.6 % (0.0-1.0); EOS # 0.3 10^3/uL (0.0-0.50); EOS % 4.4 % (0.0-3.0); HEMATOCRIT 36.5 % (36.0-47.0); HEMOGLOBIN 12.2 g/dl (12.0-15.5); IMMATURE GRANULOCYTE % 0.8 % (0-3.0); LYMPH # 1.6 10^3/uL (1.5-4.5); MEAN CORPUSCULAR HEMOGLOBIN 30.3 pg (27.0-33.0); MEAN CORPUSCULAR HGB CONC 33.4 g/dl (32.0-36.5); MEAN CORPUSCULAR VOLUME 90.8 fl (80.0-96.0); MONO # 0.4 10^3/uL (0.0-0.8); MONO % 5.8 % (0.0-5.0); NEUTROPHILS % 63.4 % (36.0-66.0); PLATELET COUNT, AUTOMATED 310 10^3/uL (150-450); RED BLOOD COUNT 4.02 10^6/uL (4.00-5.40); RED CELL DISTRIBUTION WIDTH 12.5 % (11.5-14.5); WHITE BLOOD COUNT 6.3 10^3/uL (4.0-10.0)
[2018-03-08 06:50] LABS: ALBUMIN 2.5 GM/DL (3.2-5.2); ALKALINE PHOSPHATASE 139 U/L (45-117); ALT/SGPT 47 U/L (12-78); ANION GAP 7 MEQ/L (8-16); AST/SGOT 32 U/L (7-37); BILIRUBIN,TOTAL 0.7 MG/DL (0.2-1.0); BLOOD UREA NITROGEN 8 MG/DL (7-18); CALCIUM LEVEL 8.5 MG/DL (8.8-10.2); CARBON DIOXIDE LEVEL 26 MEQ/L (21-32); CHLORIDE LEVEL 107 MEQ/L (98-107); CREATININE FOR GFR 0.55 MG/DL (0.55-1.30); GLOMERULAR FILTRATION RATE > 60.0 (>45); GLUCOSE, FASTING 148 MG/DL (70-100); MAGNESIUM LEVEL 2.3 MG/DL (1.8-2.4); POTASSIUM SERUM 3.9 MEQ/L (3.5-5.1); SODIUM LEVEL 140 MEQ/L (136-145); TOTAL PROTEIN 6.7 GM/DL (6.4-8.2)
[2018-03-08] MEDS: ENOXAPARIN 80 MG/0.8 ML SYRINGE (J1650) SC ×2 (08:56→21:28)
[2018-03-08] MEDS: PANTOPRAZOLE 40MG TAB (PROTONIX) PO (08:56)
[2018-03-08] MEDS: HumaLOG INSULIN (NovoLOG) PER UNIT SC ×4 (08:57→20:49)
[2018-03-08] MEDS: LEVEMIR (INSULIN DETEMIR) 1 UNITS/0.01ML SC ×2 (08:57→20:49)
[2018-03-08] MEDS: SENOKOT S TAB PO ×2 (09:00→20:50)
[2018-03-08] MEDS: MOM 30ML SUSPENSION UDC PO (09:27)
[2018-03-08 11:37] LABS: BEDSIDE GLUCOSE 220 MG/DL (80-115)
[2018-03-08] MEDS: IBUPROFEN 400 MG TAB PO (14:08)
[2018-03-08] MEDS: guaiFENesin SYRUP 200 MG/10 ML UDC PO ×2 (15:21→21:28)
[2018-03-08 17:48] LABS: BEDSIDE GLUCOSE 301 MG/DL (80-115)
[2018-03-08 20:42] LABS: BEDSIDE GLUCOSE 327 MG/DL (80-115)
[2018-03-08] MEDS: zolPIDEM TARTRATE 5 MG TAB PO (21:28)
[2018-03-09] MEDS: ACETAMINOPHEN TAB 650MG DOSE (2X325MG) PO (01:02)
[2018-03-09] MEDS: LEVALBUTEROL 1.25 MG/0.5 ML CONCENTRATE NEB NEB ×2 (01:26→08:40)
[2018-03-09 05:24] LABS: BEDSIDE GLUCOSE 162 MG/DL (80-115)
[2018-03-09] MEDS: ENOXAPARIN 80 MG/0.8 ML SYRINGE (J1650) SC (08:52)
[2018-03-09] MEDS: PANTOPRAZOLE 40MG TAB (PROTONIX) PO (08:52)
[2018-03-09] MEDS: MOM 30ML SUSPENSION UDC PO (08:53)
[2018-03-09] MEDS: LEVEMIR (INSULIN DETEMIR) 1 UNITS/0.01ML SC (08:53)
[2018-03-09] MEDS: HumaLOG INSULIN (NovoLOG) PER UNIT SC (08:53)
[2018-03-09] MEDS: SENOKOT S TAB PO (08:54)
[2018-03-09 11:24] LABS: BEDSIDE GLUCOSE 261 MG/DL (80-115)
== END 2018-03-09 11:47 | disposition home or self-care (01) | DRG 121 ==
LOC: M MSPAV 03-07 18:21 → M ED 08:19 → M ED INP 11:49 → M ICU 12:08
PROC: 0W9D00Z Drainage of Pericardial Cavity with Drainage Device, Open Approach (ICD-10-PCS; 2018-03-01 12:12)
PROC: 02BN0ZZ Excision of Pericardium, Open Approach (ICD-10-PCS; 2018-03-01 12:12)
PROC: 0W9900Z Drainage of Right Pleural Cavity with Drainage Device, Open Approach (ICD-10-PCS; 2018-03-01 12:12)
PROC: 0BH17EZ Insertion of Endotracheal Airway into Trachea, Via Natural or Artificial Opening (ICD-10-PCS; principal; 2018-03-01 13:11)
PROC: 5A1945Z Respiratory Ventilation, 24-96 Consecutive Hours (ICD-10-PCS; 2018-03-01 13:11)
DX: C34.12 Malignant neoplasm of upper lobe, left bronchus or lung (principal); I26.99 Other pulmonary embolism without acute cor pulmonale; J96.90 Respiratory failure, unspecified, unspecified whether with hypoxia or hypercapnia; I31.4 Cardiac tamponade; J91.0 Malignant pleural effusion; E87.2 Acidosis; K76.0 Fatty (change of) liver, not elsewhere classified; E11.65 Type 2 diabetes mellitus with hyperglycemia; F32.9 Major depressive disorder, single episode, unspecified; E66.9 Obesity, unspecified; Z68.27 Body mass index [BMI] 27.0-27.9, adult; R09.02 Hypoxemia; I31.8 Other specified diseases of pericardium; Z79.4 Long term (current) use of insulin; Z79.899 Other long term (current) drug therapy

== ENCOUNTER → 2018-03-15 | Outpatient (CLI) | payer SELFPAY | LOC: M SMT 09:37 | DX: I31.3 Pericardial effusion (noninflammatory) (principal) | CPT/HCPCS: 71046 ==

== ENCOUNTER → 2018-03-30 | Outpatient (REF) | payer SELFPAY, OTHER ==
[2018-03-30 17:53] LABS: APPEARANCE, URINE CLEAR (CLEAR); BACTERIA, URINE AUTO NEGATIVE (NEGATIVE); BILIRUBIN, URINE AUTO NEGATIVE (NEGATIVE); BLOOD, URINE BLOOD 2+ (NEGATIVE); COLOR, URINE YELLOW (YELLOW); GLUCOSE, URINE (UA) AUTO 3+ mg/dL (NEGATIVE); KETONE, URINE AUTO NEGATIVE (NEGATIVE); LEUKOCYTE ESTERASE, URINE AUTO NEGATIVE (NEGATIVE); MUCUS, URINE SMALL (NEGATIVE); NITRITE, URINE AUTO NEGATIVE (NEGATIVE); PROTEIN, URINE AUTO NEGATIVE (NEGATIVE); RBC, URINE AUTO 2 /HPF (0-3); SPECIFIC GRAVITY URINE AUTO 1.012 (1.002-1.035); SQUAMOUS EPITHELIAL CELL UR AU 0 /HPF (0-6); UROBILINOGEN, URINE AUTO 0.2 mg/dL (0.0-2.0); WBC, URINE AUTO 3 /HPF (0-3)
== END ==
LOC: M SFHCPLAZ 14:26
DX: R31.9 Hematuria, unspecified (principal)

== ENCOUNTER → 2018-04-29 | Outpatient (CLI) | payer SELFPAY | LOC: M SMT 10:00 | DX: I31.3 Pericardial effusion (noninflammatory) (principal) | CPT/HCPCS: 71046 ==